=== PATIENT | female | born 1945 | race Caucasian/White ===

== ENCOUNTER 2016-07-09 12:07 | Emergency (ER) | payer OTHER ==
[2016-07-09 12:13] VITALS: BP 115/62; PULSE 78; RESP 18; TEMP 98; O2SAT 97
[2016-07-09] MEDS ORDERED: TDAP ADULT 0.5 ML INJ (BOOSTRIX) IM ONE (12:13)
[2016-07-09] MEDS ORDERED: TETANUS, DIPHTHERIA TOX (7YR+) 0.5 ML INJ IM ONE (12:25)
[2016-07-09] MEDS ORDERED: LETS SOLN TOPICAL 1 EA SYR TP ONE (13:24)
--- NOTE | 2016-07-09 15:10 | UCPHY ---
H & P Time Seen by Provider: 07/09/16 13:09 Patient Type: Established HPI/ROS: This patient sustained a laceration from her cat scratching her forearm shortly prior to arrival. The cat took offense to the new puppy in the home and was trying to tack the puppy. The patient rushed to the canine to fence only to suffer a laceration to her forearm with mild to moderate pain from the laceration and mild bleeding that occurred shortly prior to arrival. The bleeding was controlled with direct pressure. ROS: No numbness. No difficulty moving the affected hand. No cat bites. 5 point ROS is otherwise negative. Past Medical/Surgical History: Healthy Smoking Status: Never smoked Physical Exam: Physical Exam Vital signs are normal. General: No acute distress Lungs: No respiratory distress. Cardiac: Brisk capillary refill is intact throughout. Pulses are 2+ and symmetric in the affected extremity. Skin: No rash or pallor. Patient has a 3 cm full-thickness laceration to the right forearm with minimal bleeding. No foreign bodies and direct examination the injuries on the dorsum. Neuro: Alert and oriented x3 with no sensorimotor deficits. Constitutional: Initial Vital Signs Temperature (C) 36.6 C 07/09/16 12:12 Heart Rate 78 07/09/16 12:12 Respiratory Rate 18 07/09/16 12:12 Blood Pressure 115/62 07/09/16 12:12 O2 Sat (%) 97 07/09/16 12:12 O2 Delivery Mode Room Air Allergies/Adverse Reactions: No Known Allergies Allergy (Verified 06/25/14 17:28) Home Medications: Medication Instructions Recorded No Medications [No Meds] 04/21/13 Amoxicillin/Clavulanate Pot 875 mg PO BID #14 tab 07/09/16 [Augmentin 875 MG TAB (*)] MDM/Departure - MDM Procedures: The wound is 3 cm. The wound was copiously irrigated with saline. The wound was explored for foreign bodies and none were found. The wound was prepped and draped in the normal sterile fashion. The wound was anesthetized using let solution followed by 1% plain lidocaine, 27 gauge needle, 3 mL with good effect. The edges were reapproximated using 5 0 Ethilon-6 running sutures with good hemostasis and cosmesis. The patient tolerated the procedure well. There were no complications Medications Given: Discontinued Medications Diphtheria/Tetanus/Acell Pertussis (Boostrix) 0.5 ml IM .ONCE ONE Stop: 07/09/16 12:14 Last Admin: 07/09/16 12:30 Dose: Not Given Tetanus/Diphtheria Toxoids Adsorbed (Tetanus-Diphtheria Tenivac) 0.5 ml IM .ONCE ONE Stop: 07/09/16 12:26 Last Admin: 07/09/16 12:29 Dose: 0.5 ml Tetracaine/Epinephrine/Lidocaine (Lets Soln Topical) 1 ea TP EDNOW ONE Stop: 07/09/16 13:25 Last Admin: 07/09/16 13:30 Dose: 1 ea ED Course/Re-evaluation: I provided the patient with an Augmentin script to start taking if she develops redness or discharge - Depart Disposition: Home, Routine, Self-Care Clinical Impression: Forearm laceration Qualifiers: Encounter type: initial encounter Laterality: right Qualifier Code: (S51.811A) Laceration without foreign body of right forearm, initial encounter Instructions: Care For Your Stitches (ED) Additional Instructions: Diagnosis: Forearm laceration Plan: Keep the wound clean and dry for the next 2 days. Then Clean wound with warm soapy water daily Start the Augmentin antibiotic the developing redness or discharge Return for suture removal in 10-12 days Return sooner if he develops worsening symptoms prior to then. Prescriptions: Amoxicillin/Clavulanate Pot [Augmentin 875 MG TAB (*)] 875 mg PO BID #14 tab Referrals: [place] STATE,. [Primary Care Provider] - As per Instructions - PQRS PQRS Measurement: 134: Depression screening and followup, PRIME MD-PHQ2 (12 years and older) Over the last 2 weeks, how often have you been bothered by any of the following problems? 1. Feeling down, depressed, or hopeless? 2. Little interest or pleasure in doing things? Patient answered no to both 1 and 2 130: Documentation of medications. Reviewed all patient medications, doses, route and frequency. 226: Do you smoke? [No.] 47: 65 and older: Advanced care planning. Patient designates surrogate decision maker as daughter, Bonnie 51: 18 years old and older with diagnosis of COPD, spirometry performance. NA 52: 18 years old and older with COPD and symptoms of COPD or FEV1<60% predicted prescribed a B Agonist. NA
== END 2016-07-09 15:13 | disposition home or self-care (01) ==
LOC: CED 12:07
PROC: 0HQDXZZ Repair Right Lower Arm Skin, External Approach (ICD-10-PCS; principal; 2016-07-09)
DX: S51.811A Laceration without foreign body of right forearm, initial encounter (principal); W55.03XA Scratched by cat, initial encounter
CPT/HCPCS: 12002; 90471; 90714; G0463; 99214-PO

== ENCOUNTER 2017-02-25 15:04 | Emergency (ER) | payer OTHER ==
[2017-02-25] MEDS ORDERED: HYDROCODONE/APAP 5/325 TAB PO ONE (15:09)
--- NOTE | 2017-02-25 15:19 | EDPHY ---
H & P Stated Complaint: left wrist injury fall from standing Time Seen by Provider: 02/25/17 15:16 HPI/ROS: CHIEF COMPLAINT: Left wrist pain HISTORY OF PRESENT ILLNESS: The patient is a 71-year-old female who comes to the emergency department complaining of left wrist pain. She fell on an outstretched hand. She tripped over her dog. She denies other injuries. REVIEW OF SYSTEMS: Constitutional: denies: chills, fever, recent illness, recent injury EENTM: denies: blurred vision, double vision, nose congestion Respiratory: denies: cough, shortness of breath Cardiac: denies: chest pain, irregular heart rate, lightheadedness, palpitations Gastrointestinal/Abdominal: denies: abdominal pain, diarrhea, nausea, vomiting, blood streaked stools Genitourinary: denies: dysuria, frequency, hematuria, pain Musculoskeletal: See HPI Skin: denies: lesions, rash, jaundice, bruising Neurological: denies: headache, numbness, paresthesia, tingling, dizziness, weakness Hematologic/Lymphatic: denies: blood clots, easy bleeding, easy bruising Immunologic/allergic: denies: HIV/AIDS, transplant EXAM: GENERAL: Well-appearing, well-nourished and in no acute distress. HEAD: Atraumatic, normocephalic. EYES: Pupils equal round and reactive to light, extraocular movements intact, sclera anicteric, conjunctiva are normal. ENT: TMs normal, nares patent, oropharynx clear without exudates. Moist mucous membranes. NECK: Normal range of motion, supple without lymphadenopathy or JVD. LUNGS: Breath sounds clear to auscultation bilaterally and equal. No wheezes rales or rhonchi. HEART: Regular rate and rhythm without murmurs, rubs or gallops. ABDOMEN: Soft, nontender, normoactive bowel sounds. No guarding, no rebound. No masses appreciated. BACK: No CVA tenderness, no spinal tenderness, step-offs or deformities EXTREMITIES: Left wrist deformity, normal movement distally. Pulses intact. NEUROLOGICAL: Cranial nerves II through XII grossly intact. Normal speech, normal gait. 5/5 strength, normal movement in all extremities, normal sensation PSYCH: Normal mood, normal affect. SKIN: Warm, dry, normal turgor, no visible rashes or lesions. Source: Patient Exam Limitations: No limitations - Personal History Current Tetanus/Diphtheria Vaccine: Yes Current Tetanus Diphtheria and Acellular Pertussis (TDAP): Yes Tetanus Vaccine Date: < 10 years - Medical/Surgical History Hx Asthma: No Hx Chronic Respiratory Disease: No Hx Diabetes: No Hx Cardiac Disease: No Hx Renal Disease: No Hx Cirrhosis: No Hx Alcoholism: No Hx HIV/AIDS: No Hx Splenectomy or Spleen Trauma: No Other PMH: denies - Social History Smoking Status: Never smoked Alcohol Use: Sober Drug Use: None Constitutional: Initial Vital Signs Temperature (C) 36.6 C 02/25/17 15:10 Heart Rate 67 02/25/17 15:10 Respiratory Rate 20 02/25/17 15:10 Blood Pressure 138/71 H 02/25/17 15:10 O2 Sat (%) 99 02/25/17 15:10 O2 Delivery Mode Room Air Allergies/Adverse Reactions: No Known Allergies Allergy (Verified 02/25/17 15:09) Home Medications: Medication Instructions Recorded No Medications [No Meds] 04/21/13 Hydrocodone/APAP 5/325 [[place] 1 - 2 tab PO Q4H PRN #10 tab 02/25/17 5/325 (RX)] Medical Decision Making - Diagnostics Imaging Results: Imaging Impressions Wrist X-Ray 02/25/17 15:07 Impression: Acute minimally angulated distal radius fracture. Wrist X-Ray 02/25/17 16:07 Impression: Successful anatomical reduction of the distal radial fracture. Imaging: Discussed imaging studies w/ billing administrator Radiologist Procedures: Fracture reduction: The patient was anesthetized with the hematoma block the 10 cc of 0.5% bupivacaine. She was then taken to x-ray and her fracture was reduced with traction and direct pressure. She tolerated the procedure well. Pulses remained intact. Procedure: Splint placement. A sugar-tong splint was applied. After application of the splint I returned and re-examined the patient. The splint was adequately immobilizing the joint and distal to the splint the patient's circulation and sensation was intact. ED Course/Re-evaluation: Patient tolerated the procedure well. Post reduction x-rays show appropriate alignment. We will have her follow up with Orthopedics. Splint is in place. Differential Diagnosis: Partial list of the Differential diagnosis considered include but were not limited to; Colles fracture, dislocation, open fracture and although unlikely based on the history and physical exam, I also considered tendon injury, vascular injury, infection, foreign body. I discussed these differential diagnoses and the plan with the patient as well as the usual and expected course. The patient understands that the diagnosis is provisional and that in medicine we are not always correct and that further workup is often warranted. Usual and customary warnings were given. All of the patient's questions were answered. The patient was instructed to return to the emergency department should the symptoms at all worsen or return, otherwise to followup with the physician as we discussed. - Data Points Medications Given: Discontinued Medications Hydrocodone Bitart/Acetaminophen ([place] 5/325) 1 tab PO EDNOW ONE Stop: 02/25/17 15:10 Last Admin: 02/25/17 15:16 Dose: 1 tab Fentanyl (Sublimaze) 200 mcg NASAL ONCE ONE Stop: 02/25/17 15:21 Last Admin: 02/25/17 15:29 Dose: Not Given Fentanyl (Sublimaze) 100 mcg NASAL ONCE ONE Stop: 02/25/17 15:29 Last Admin: 02/25/17 15:30 Dose: 100 mcg Departure - Departure Disposition: Home, Routine, Self-Care Clinical Impression: Colles' fracture of left radius Qualifiers: Encounter type: initial encounter Fracture type: closed Qualified Code(s): S52.532A - Colles' fracture of left radius, initial encounter for closed fracture Condition: Fair Instructions: Wrist Fracture in Adults (ED) Additional Instructions: Wear the splint for 1 week and then follow up with Orthopedics. Referrals: NONE *PRIMARY CARE P,. [Primary Care Provider] - As per Instructions Phil Banks MD [Medical Doctor] - As per Instructions Prescriptions: Hydrocodone/APAP 5/325 [[place] 5/325 (RX)] 1 - 2 tab PO Q4H PRN #10 tab PRN Reason: Pain, Moderate
[2017-02-25] MEDS ORDERED: fentaNYL 100 MCG/2 ML INJ ONE (15:22)
[2017-02-25 16:34] VITALS: BP 128/67; PULSE 74; RESP 18; TEMP 98.1; O2SAT 97
== END 2017-02-25 16:34 | disposition home or self-care (01) ==
LOC: CED 15:04
PROC: 0PSHXZZ Reposition Right Radius, External Approach (ICD-10-PCS; principal; 2017-02-25)
DX: S52.532A Colles' fracture of left radius, initial encounter for closed fracture (principal); W01.0XXA Fall on same level from slipping, tripping and stumbling without subsequent striking against object, initial encounter; Y92.019 Unspecified place in single-family (private) house as the place of occurrence of the external cause
CPT/HCPCS: 25605; 73100; 73110; 99283; J3010

== ENCOUNTER 2017-02-27 10:42 | Emergency (ER) | payer OTHER ==
[2017-02-27 10:58] VITALS: PULSE 61; RESP 18; O2SAT 95
--- NOTE | 2017-02-27 11:07 | EDPHY ---
H & P Time Seen by Provider: 02/27/17 11:03 HPI/ROS: CHIEF COMPLAINT: Right arm pain HISTORY OF PRESENT ILLNESS: The patient is a 71-year-old female who presents emergency department with increased arm pain and hand swelling over the past 2 days. She recently fell and broke her distal radius. This required reduction in the emergency department. She was splinted. She noticed discoloration on her hand and increased swelling. She has mild increased discomfort. No numbness or tingling. She denies other injury. The patient has an appointment with orthopedic surgeon this week. REVIEW OF SYSTEMS: My complete review of systems is negative except as mentioned in the HPI. Past Medical/Surgical History: Osteopenia Smoking Status: Never smoked Physical Exam: Vitals noted General Appearance: Alert and no distress. Head: Pupils equal. Normal. Respiratory: No respiratory distress. Cardiac: regular rate and rhythm. Extremities: the Tony wrap was removed by the nursing staff. On my evaluation the Ortho Glass portion of splint was in place. There is mild swelling at her hand. There is bruising on the dorsal aspect of her hand. She has positive and brisk capillary refill. Strong radial and ulnar pulse. Normal brachial pulse. Neurovascular intact distally. Skin: No rashes or lesions. Neuro: Alert. Normal mood and affect. Constitutional: Initial Vital Signs Heart Rate 61 02/27/17 10:53 Respiratory Rate 18 02/27/17 10:53 Blood Pressure 154/87 H 02/27/17 10:53 O2 Sat (%) 95 02/27/17 10:53 O2 Delivery Mode Room Air Allergies/Adverse Reactions: No Known Allergies Allergy (Verified 02/27/17 10:58) Home Medications: Medication Instructions Recorded No Medications [No Meds] 04/21/13 Hydrocodone/APAP 5/325 [[place] 1 - 2 tab PO Q4H PRN #10 tab 02/25/17 5/325 (RX)] Medical Decision Making ED Course/Re-evaluation: In the emergency department I discussed the need for close follow-up with the patient. The patient had her Ortho Glass splint rewrapped. She was neurovascularly intact distally. I feel the swelling of her hand caused the splint to be overly tight causing her symptoms. I doubt compartment syndrome. Patient appeared well on my exam. Differential Diagnosis: My differential includes but is not limited to compartment syndrome, hematoma, fracture, dislocation, neurovascular injury Departure - Departure Disposition: Home, Routine, Self-Care Clinical Impression: Right arm pain Radius fracture Qualifiers: Encounter type: subsequent encounter Radius location: distal physis (incl. Salter[place]Chowdhury) Fracture alignment: displaced Laterality: right Fracture healing : with routine healing Qualified Code(s): S59.201D - Unspecified physeal fracture of lower end of radius, right arm, subsequent encounter for fracture with routine healing Condition: Good Instructions: Arm Fracture in Adults (ED) Additional Instructions: Return with increasing pain, numbness, weakness or any other concerns. Keep your appointment with the orthopedic surgeon this week. Referrals: Phil Banks MD [Medical Doctor] - 2-3 days without fail
[2017-02-27 11:44] VITALS: BP 143/78
== END 2017-02-27 11:28 | disposition home or self-care (01) ==
LOC: CED 10:42
DX: S59.201D Unspecified physeal fracture of lower end of radius, right arm, subsequent encounter for fracture with routine healing (principal); W18.39XD Other fall on same level, subsequent encounter

== ENCOUNTER 2017-11-01 17:55 | Observation (INO) | payer OTHER ==
[2017-11-01] MEDS ORDERED: IOPAMIDOL (ISOVUE 370) 100 ML BTL IV ONE (18:08)
--- NOTE | 2017-11-01 18:15 | EDPHY ---
H & P Stated Complaint: ACUTE MENTAL STATUS CHANGE STARTING AT 1400 Time Seen by Provider: 11/01/17 18:01 HPI/ROS: This patient is accompanied by her daughter with whom she lives with complaint of new onset of short-term memory deficit starting at 2:00 p.m. This afternoon. Patient and her daughter explain that she was with with a normal mental status document details of her vehicle in problems with its mechanical function. Then at 2:00 p.m. And a conversation with the senior mechanical design engineer she could not remember any part of the conversation. She was upset by this and had the senior mechanical design engineer call back with her daughter present on speaker phone to the details and then she did remember that conversation. Other than her short-term memory problems she denies any other new neurological problems. She felt well prior to the onset of her memory difficulties today. Her daughter brought her in by private vehicle for further evaluation of the symptoms. ROS: Constitutional: No fevers or chills. No fatigue. HEENT: No recent URI symptoms, sinus pain, ear pain or other complaints Neuro: No headache. No focal neuro symptoms. No visual changes. No recent head injuries. Musculoskeletal: No neck pain or stiffness. She does have bilateral leg pain for quite some time which that is mild in intensity without exacerbating factors and has not recently changed. Pulmonary: No coughing. She does have some dyspnea on exertion with a out dyspnea at baseline. Cardiovascular: No chest pain. No heart palpitations. No lower extremity swelling. GI: No nausea. No abdominal pain. She had no difficulty eating pasta for lunch today. : No dysuria or other complaints. No flank pain. Integumentary: No skin rash. Complete review of symptoms is otherwise negative. Source: Patient Exam Limitations: No limitations - Personal History Tetanus Vaccine Date: < 10 years - Medical/Surgical History PMH: Otherwise healthy. She had a normal cardiac stress test recently that was performed due to some new dyspnea on exertion per her daughter. Hx Asthma: No Hx Chronic Respiratory Disease: No Hx Diabetes: No Hx Cardiac Disease: No Hx Renal Disease: No Hx Cirrhosis: No Hx Alcoholism: No Hx HIV/AIDS: No Hx Splenectomy or Spleen Trauma: No Other PMH: osteopenia - Family History Significant Family History: No pertinent family hx - Social History Smoking Status: Never smoked Alcohol Use: None Drug Use: None Additional Social History: She lives with her daughter who brought her here for evaluation. - Physical Exam Exam: Physical exam: Vital signs are normal General: Patient is in no acute distress. HEENT: Is no external evidence of trauma on exam. Nose atraumatic. Ears: Clear bilaterally with no hemotympanum. Oropharynx: No dental trauma or malocclusion. No intraoral lacerations. Eyes: Pupils are equal and reactive to light. Extraocular motions are intact. Optic fundi: Clear with no papilledema or hemorrhage. Neck: Trachea is midline with no stridor. The patient has no midline neck tenderness and retains a full range of motion without increase in pain. Lungs: Clear to auscultation bilaterally Cardiac: Regular rate and rhythm no murmur gallop or rub. Chest: Nontender. Abdomen: Soft nontender no organomegaly Back: Nontender Extremities: Atraumatic Neuro: GCS of 15. Cranial nerves II through XII intact. Cerebellar exam is normal as judged by symmetric rapid hand movements bilaterally. No pronator drift. No sensory or motor deficits are appreciated. NIH stroke scale = 0 Initial differential diagnosis: Transient global amnesia, ischemic stroke, hemorrhagic stroke, metabolic disarray, UTI Constitutional: Initial Vital Signs Temperature (C) 36.6 C 11/01/17 18:04 Heart Rate 68 11/01/17 18:04 Respiratory Rate 18 11/01/17 18:04 Blood Pressure 168/94 H 11/01/17 18:04 O2 Sat (%) 96 11/01/17 18:04 O2 Delivery Mode Room Air Allergies/Adverse Reactions: No Known Allergies Allergy (Verified 11/01/17 18:03) Home Medications: Medication Instructions Recorded Citalopram 11/01/17 Ritalin 10mg (*) 11/01/17 Medical Decision Making - Diagnostics EKG Interpretation: 12 lead EKG performed shortly after arrival indication neuro symptoms rule out cardiac anomalies Sinus rhythm at rate of 64 Intervals: Normal throughout [place]: LAD Overall assessment: normal sinus rhythm with left axis deviation, please refer to complete read and the trace master child care assistant. Imaging Results: Imaging Impressions Head CT 11/01/17 18:08 Impression: There is no acute intracranial abnormality identified on this unenhanced CT evaluation. If there is further clinical concern regarding the patient's symptoms, MR imaging is suggested, if not otherwise contraindicated. Findings were discussed with DANIEL REYNOSO MD at 18:23, on 11/01/2017. Head CTA 11/01/17 18:27 Impression: Negative CT angiogram of the brain. 2. CT Angiography of the Neck (With Contrast) Clinical Indications: Sudden memory loss, acute neurological symptoms Technique: During IV administration of 85 mL of Isovue-370 intravenously, helical multidetector data acquisition was obtained from the upper thorax cephalad through the skull base. The thinly collimated data were manipulated in multiple projections on the 3D computer workstation by the radiologist. Dose reduction techniques were utilized. Findings: Carotid bifurcations are widely patent. Both vertebral arteries are tortuous proximally but widely patent. No evidence of occlusion, hemodynamically significant stenosis, or ulceration. Impression: Normal. Final concordant results discussed with Dr. Daniel Reynoso at 7:20 PM. Note: All stenoses are calculated using NASCET Criteria. General information for patients regarding this examination can be found at [employer]. If you have questions or comments about this report, please contact me at [phone]([facility]) or [phone] (cell). Neck CTA 11/01/17 18:31 Impression: Negative CT angiogram of the brain. 2. CT Angiography of the Neck (With Contrast) Clinical Indications: Sudden memory loss, acute neurological symptoms Technique: During IV administration of 85 mL of Isovue-370 intravenously, helical multidetector data acquisition was obtained from the upper thorax cephalad through the skull base. The thinly collimated data were manipulated in multiple projections on the 3D computer workstation by the radiologist. Dose reduction techniques were utilized. Findings: Carotid bifurcations are widely patent. Both vertebral arteries are tortuous proximally but widely patent. No evidence of occlusion, hemodynamically significant stenosis, or ulceration. Impression: Normal. Final concordant results discussed with Dr. Daniel Reynoso at 7:20 PM. Note: All stenoses are calculated using NASCET Criteria. General information for patients regarding this examination can be found at [employer]. If you have questions or comments about this report, please contact me at (hospital) or [phone] (cell). Imaging: Discussed imaging studies w/ director call center sales Radiologist ED Course/Re-evaluation: Course: IV is established, patient was initially placed in a stroke alert then downgraded after further review of her symptoms, NIH stroke scale [address] CBC is normal, metabolic panel is normal, urinalysis with 3-5 white cells, 1+ bacteria, trace leuk esterase. A culture is sent. Without any urinary symptoms and borderline findings I do not think she has a UTI at this time I reviewed CT brain with Dr. Medina shortly after patient's arrival-normal. I spoke with [place] neurologist Dr. Casey who recommended CT angio brain as well and observation admission with anticipated diagnosis of transient global amnesia. He advised against aspirin or any other medical intervention at this time other than admission to a neuro bed I spoke with Dr. Sánchez Ruggiero, hospitalist at [facility] accepts the patient for transfer. CT angio head is also read as normal by Dr. Fairchild. I discussed these results with him over the phone Discussion: Patient with short-term memory problems acute in onset-likely transient global amnesia without any red flag findings in terms of neuro imaging. - Data Points Laboratory Results: Laboratory Results 11/01/17 18:25 11/01/17 18:25 11/01/17 11/01/17 11/01/17 18:26 18:25 18:25 WBC RBC Hgb POC Hgb 15.3 gm/dL gm/dL (12.6-16.3) Hct POC Hct 45 % % (38-47) MCV MCH MCHC RDW Plt Count MPV Neut % (Auto) Lymph % (Auto) [place] % (Auto) Eos % (Auto) Baso % (Auto) Nucleat RBC Rel Count Absolute Neuts (auto) Absolute Lymphs (auto) Absolute Monos (auto) Absolute Eos (auto) Absolute Basos (auto) Absolute Nucleated RBC Immature Gran % Immature Gran # POC Sodium 143 mEq/L mEq/L (135-145) Sodium 141 mEq/L mEq/L (135-145) POC Potassium 3.6 mEq/L mEq/L (3.3-5.0) Potassium 3.7 mEq/L mEq/L (3.3-5.0) POC Chloride 106 mEq/L mEq/L (97-110) Chloride 106 mEq/L mEq/L (97-110) Carbon Dioxide 25 mEq/l mEq/l (22-31) Anion Gap 10 mEq/L mEq/L (8-16) POC BUN 16 mg/dL mg/dL (7-23) BUN 15 mg/dL mg/dL (7-23) Creatinine 0.7 mg/dL mg/dL (0.6-1.0) POC Creatinine 0.7 mg/dL mg/dL (0.6-1.0) Estimated GFR > 60 Glucose 82 mg/dL mg/dL (70-100) POC Glucose 86 mg/dL mg/dL (70-100) Calcium 9.5 mg/dL mg/dL (8.5-10.4) Total Bilirubin 0.5 mg/dL mg/dL (0.1-1.4) AST 24 IU/L IU/L (14-46) ALT 24 IU/L IU/L (9-52) Alkaline Phosphatase 81 IU/L IU/L (38-126) Total Protein 7.4 g/dL g/dL (6.3-8.2) Albumin 4.0 g/dL g/dL (3.5-5.0) TSH 2.730 uIU/mL uIU/mL (0.465-4.680) Urine Color YELLOW Urine Appearance CLEAR Urine pH 7.0 (5.0-7.5) Ur Specific [place] <= 1.005 (1.002-1.030) Urine Protein NEGATIVE (NEGATIVE) Urine Ketones NEGATIVE (NEGATIVE) Urine Blood TRACE H (NEGATIVE) Urine Nitrate NEGATIVE (NEGATIVE) Urine Bilirubin NEGATIVE (NEGATIVE) Urine Urobilinogen 0.2 EU EU (0.2-1.0) Ur Leukocyte Esterase TRACE H (NEGATIVE) Urine RBC 0-1 /hpf /hpf (0-3) Urine WBC 3-5 /hpf H /hpf (0-3) Ur Epithelial Cells TRACE /lpf /lpf (NONE-1+) Urine Bacteria 1+ /hpf H /hpf (NONE SEEN) Urine Glucose NEGATIVE (NEGATIVE) 11/01/17 11/01/17 18:25 18:09 WBC 6.21 10^3/uL 10^3/uL (3.80-9.50) RBC 4.70 10^6/uL 10^6/uL (4.18-5.33) Hgb 14.1 g/dL g/dL (12.6-16.3) POC Hgb Hct 42.4 % % (38.0-47.0) POC Hct MCV 90.2 fL fL (81.5-99.8) MCH 30.0 pg pg (27.9-34.1) MCHC 33.3 g/dL g/dL (32.4-36.7) RDW 13.2 % % (11.5-15.2) Plt Count 311 10^3/uL 10^3/uL (150-400) MPV 9.2 fL fL (8.7-11.7) Neut % (Auto) 54.6 % % (39.3-74.2) Lymph % (Auto) 34.8 % % (15.0-45.0) [place] % (Auto) 7.2 % % (4.5-13.0) Eos % (Auto) 2.6 % % (0.6-7.6) Baso % (Auto) 0.5 % % (0.3-1.7) Nucleat RBC Rel Count 0.0 % % (0.0-0.2) Absolute Neuts (auto) 3.39 10^3/uL 10^3/uL (1.70-6.50) Absolute Lymphs (auto) 2.16 10^3/uL 10^3/uL (1.00-3.00) Absolute Monos (auto) 0.45 10^3/uL 10^3/uL (0.30-0.80) Absolute Eos (auto) 0.16 10^3/uL 10^3/uL (0.03-0.40) Absolute Basos (auto) 0.03 10^3/uL 10^3/uL (0.02-0.10) Absolute Nucleated RBC 0.00 10^3/uL 10^3/uL (0-0.01) Immature Gran % 0.3 % % (0.0-1.1) Immature Gran # 0.02 10^3/uL 10^3/uL (0.00-0.10) POC Sodium Sodium POC Potassium Potassium POC Chloride Chloride Carbon Dioxide Anion Gap POC BUN BUN Creatinine POC Creatinine Estimated GFR Glucose POC Glucose 71 mg/dL mg/dL (70-100) Calcium Total Bilirubin AST ALT Alkaline Phosphatase Total Protein Albumin TSH Urine Color Urine Appearance Urine pH Ur Specific [place] Urine Protein Urine Ketones Urine Blood Urine Nitrate Urine Bilirubin Urine Urobilinogen Ur Leukocyte Esterase Urine RBC Urine WBC Ur Epithelial Cells Urine Bacteria Urine Glucose Point of Care Test Results: 11/01/17 11/01/17 18:09 18:26 POC Sodium 143 POC Potassium 3.6 POC Chloride 106 POC BUN 16 POC Creatinine 0.7 POC Glucose 71 86 Departure - Departure Disposition: [facility] Inpatient Acute Clinical Impression: Transient global amnesia Condition: Good
[2017-11-01 18:36] LABS: PLATELET COUNT 311 10^3/uL (150-400)
--- NOTE | 2017-11-01 19:05 | CPEKG ---
Heart Rate: 64 RR Interval: 938 P-R Interval: 164 QRSD Interval: 104 QT Interval: 428 QTC Interval: 442 P [place]: 68 QRS [place]: -36 T Wave [place]: 39 EKG Severity - OTHERWISE NORMAL ECG - EKG Impression: SINUS RHYTHM EKG Impression: LEFT AXIS DEVIATION Electronically Signed By: Mack Moss 01-Nov-2017 21:22:39
[2017-11-01] MEDS ORDERED: ONDANSETRON 4 MG/2 ML VIAL IVP PRN (22:13)
[2017-11-01] MEDS ORDERED: ACETAMINOPHEN 325 MG TAB PO PRN (22:13)
[2017-11-01] MEDS ORDERED: D50W 25 GM/50 ML SYR IVP PRN (23:16)
--- NOTE | 2017-11-01 23:36 | PDGENHP ---
History and Physical - Chief Complaint memory loss - History of Present Illness Source - patient provides majority of pmhx. daughter at bedside and supplements details of today. EMR reviewed and case discussed with accepting hospitalist provider. HPI - this is a very pleasant 71-year-old female with past medical history significant for depression and anxiety and otherwise relatively healthy who presents emergency department today on for complaints of memory loss since approximately 2:00 p.m.. Patient reports she was in her usual state of health but cannot really recall exactly what happened in the afternoon. She does remember from what her daughter has had to react spleen to her that she was talking to a mechanical system technician on the phone but was unsure of what he had said. She appeared confused to the daughter who on was visiting in the afternoon. She had no reported focal deficits slurred speech or changes in vision. Patient still was not able to recall the conversation of details of discussion with the mechanical system technician after patient called back with the daughter of listening on the speaker phone. Patient currently denies any headache, changes in vision, nausea vomiting, lightheadedness, chest pain or palpitations, shortness of breath or any other symptoms. She simply cannot recall. Patient without any previous episodes similarly. Daughter reports that patient did not have any evidence of seizure type of activity or staring. No observe tonic clonic activity and no syncope. Patient denies any recent use of any [id number] medications. He has continued to take her citalopram and her liver Ritalin as prescribed. She denies missing any doses. Daughter does report that she has noticed some minimal on memory decline over the last year. Patient will forget minor details such as where she left her phone or her keys. She has never had any significant memory deficits such as today however. History Information - Allergies/Home Medication List Allergies/Adverse Reactions: No Known Allergies Allergy (Verified 11/01/17 22:37) Home Medications: Citalopram 1 tab PO DAILY@17 11/01/17 [Last Taken 10/31/17] Herbals/Supplements -Info Only 2 ea PO DAILY 11/01/17 [Last Taken Unknown] Multivitamins [Multivitamin (*)] 1 each PO DAILY 11/01/17 [Last Taken Unknown] [place]-3/Dha/Epa/Fish Oil [Fish Oil 1,000 mg Softgel] 2 each PO DAILY 11/01/17 [ Last Taken Unknown] methYLPHENIDATE HCL [Ritalin 10mg (*)] 10 mg PO BID@09,15 11/01/17 [Last Taken Unknown] I have personally reviewed and updated: family history, medical history, social history, surgical history - Past Medical History Additional medical history: Depression, osteoporosis, HLD - Surgical History Additional surgical history: Left wrist surgery for fracture repair - Family History Additional family history: No family history of CVA, CAD, seizures or dementia. - Social History Smoking Status: Never smoked Alcohol Use: None Drug Use: None Additional social history: Patient lives with her daughter. She is generally quite active and healthy. Cor status-full Review of Systems Review of Systems: ROS: 10pt was reviewed & negative except for what was stated in HPI & below Physical Exam Physical Exam: Selected Entries 11/01/17 18:04 Blood Pressure Automatic Method Heart Rate 68 Respiratory 18 Rate O2 Sat (%) 96 Temperature (C) 36.6 C Blood Pressure 168/94 H Mean Arterial 118 H Pressure (MAP) O2 Delivery Room Air Mode Temperature Oral Source Temp Pulse Resp BP Pulse Ox 36.6 C 76 17 115/68 93 11/01/17 22:59 11/01/17 22:59 11/01/17 22:59 11/01/17 22:59 11/01/17 22:59 Constitutional: no apparent distress, appears nourished, other (NAD. Pleasant adult female is resting quietly on bed. Daughter at bedside.), No chronically ill appearing Eyes: PERRL, anicteric sclera, EOMI, No scleral injection Ears, Nose, Mouth, Throat: moist mucous membranes, hearing normal, no oral mucosal ulcers, other (No nasal discharge), No poor dentition, No dry mucous membranes Cardiovascular: regular rate and rhythym, no murmur, rub, or gallop, pulses symmetric bilaterally, No systolic murmur, No edema Peripheral Pulses: 2+: dorsalis-pedis (R), dorsalis-pedis (L) Respiratory: no respiratory distress, no rales or rhonchi, clear to auscultation , No reduced air movement, No expiratory wheeze, No respiratory distress Gastrointestinal: normoactive bowel sounds, soft, non-tender abdomen, no palpable masses, No distension Genitourinary: no bladder fullness, no bladder tenderness, No alejandra in urethra Skin: warm, normal color, no rashes or abrasions Musculoskeletal: full muscle strength, no muscle tenderness, other (Patient sits up independently.), No generalized weakness Neurologic: AAOx3, sensation intact bilaterally, CN II-XII Intact, other ( Finger to nose testing intact), No weakness, No pronator drift, No facial droop Psychiatric: interacting appropriately, anxious (Patient minimally act anxious but pleasant and cooperative in good spirits.), No agitated Lab Data & Imaging Review 11/01/17 18:25 11/01/17 18: WBC 6.21 10^3/uL (3.80-9.50) 11/01/17 18: RBC 4.70 10^6/uL (4.18-5.33) 11/01/17 18: Hgb 14.1 g/dL (12.6-16.3) 11/01/17 18: POC Hgb 15.3 gm/dL (12.6-16.3) 11/01/17 18: Hct 42.4 % (38.0-47.0) 11/01/17 18: POC Hct 45 % (38-47) 11/01/17 18: MCV 90.2 fL (81.5-99.8) 11/01/17 18: MCH 30.0 pg (27.9-34.1) 11/01/17 18: MCHC 33.3 g/dL (32.4-36.7) 11/01/17 18: RDW 13.2 % (11.5-15.2) 11/01/17 18: Plt Count 311 10^3/uL (150-400) 11/01/17 18: MPV 9.2 fL (8.7-11.7) 11/01/17 18: Neut % (Auto) 54.6 % (39.3-74.2) 11/01/17 18: Lymph % (Auto) 34.8 % (15.0-45.0) 11/01/17 18: [place] % (Auto) 7.2 % (4.5-13.0) 11/01/17 18: Eos % (Auto) 2.6 % (0.6-7.6) 11/01/17 18: Baso % (Auto) 0.5 % (0.3-1.7) 11/01/17 18:25 Nucleat RBC Rel Count 0.0 % (0.0-0.2) 11/01/17 18:25 Absolute Neuts (auto) 3.39 10^3/uL (1.70-6.50) 11/01/17 18:25 Absolute Lymphs (auto) 2.16 10^3/uL (1.00-3.00) 11/01/17 18:25 Absolute Monos (auto) 0.45 10^3/uL (0.30-0.80) 11/01/17 18:25 Absolute Eos (auto) 0.16 10^3/uL (0.03-0.40) 11/01/17 18: Absolute Basos (auto) 0.03 10^3/uL (0.02-0.10) 11/01/17 18: Absolute Nucleated RBC 0.00 10^3/uL (0-0.01) 11/01/17 18: Immature Gran % 0.3 % (0.0-1.1) 11/01/17 18: Immature Gran # 0.02 10^3/uL (0.00-0.10) 11/01/17 18:25 POC Sodium 143 mEq/L (135-145) 11/01/17 18:26 Sodium 141 mEq/L (135-145) 11/01/17 18:25 POC Potassium 3.6 mEq/L (3.3-5.0) 11/01/17 18:26 Potassium 3.7 mEq/L (3.3-5.0) 11/01/17 18:25 POC Chloride 106 mEq/L (97-110) 11/01/17 18:26 Chloride 106 mEq/L (97-110) 11/01/17 18:25 Carbon Dioxide 25 mEq/l (22-31) 11/01/17 18:25 Anion Gap 10 mEq/L (8-16) 11/01/17 18:25 POC BUN 16 mg/dL (7-23) 11/01/17 18:26 BUN 15 mg/dL (7-23) 11/01/17 18:25 Creatinine 0.7 mg/dL (0.6-1.0) 11/01/17 18:25 POC Creatinine 0.7 mg/dL (0.6-1.0) 11/01/17 18:26 Estimated GFR > 60 11/01/17 18:25 Glucose 82 mg/dL (70-100) 11/01/17 18:25 POC Glucose 86 mg/dL (70-100) 11/01/17 18:26 Calcium 9.5 mg/dL (8.5-10.4) 11/01/17 18:25 Total Bilirubin 0.5 mg/dL (0.1-1.4) 11/01/17 18:25 AST 24 IU/L (14-46) 11/01/17 18:25 ALT 24 IU/L (9-52) 11/01/17 18:25 Alkaline Phosphatase 81 IU/L (38-126) 11/01/17 18:25 Total Protein 7.4 g/dL (6.3-8.2) 11/01/17 18:25 Albumin 4.0 g/dL (3.5-5.0) 11/01/17 18:25 TSH 2.730 uIU/mL (0.465-4.680) 11/01/17 18:25 Urine Color YELLOW 11/01/17 18:25 Urine Appearance CLEAR 11/01/17 18:25 Urine pH 7.0 (5.0-7.5) 11/01/17 18:25 Ur Specific [place] <= 1.005 (1.002-1.030) 11/01/17 18:25 Urine Protein NEGATIVE (NEGATIVE) 11/01/17 18:25 Urine Ketones NEGATIVE (NEGATIVE) 11/01/17 18:25 Urine Blood TRACE (NEGATIVE) H 11/01/17 18:25 Urine Nitrate NEGATIVE (NEGATIVE) 11/01/17 18:25 Urine Bilirubin NEGATIVE (NEGATIVE) 11/01/17 18:25 Urine Urobilinogen 0.2 EU (0.2-1.0) 11/01/17 18:25 Ur Leukocyte Esterase TRACE (NEGATIVE) H 11/01/17 18:25 Urine RBC 0-1 /hpf (0-3) 11/01/17 18:25 Urine WBC 3-5 /hpf (0-3) H 11/01/17 18:25 Ur Epithelial Cells TRACE /lpf (NONE-1+) 11/01/17 18:25 Urine Bacteria 1+ /hpf (NONE SEEN) H 11/01/17 18:25 Urine Glucose NEGATIVE (NEGATIVE) 11/01/17 18:25 Imaging Review: CT Scan of the Head (Without Contrast) Clinical History: 72-year-old female with an acute memory loss. There is no focal sensory or motor neurologic deficit, or history of antecedent trauma. Technique: Axial unenhanced images were obtained from the vertex through the skull base, reformatted at 5.00 and 1.50 mm increments, and reviewed in bone, brain, and subdural windows. Images were reprocessed in parasagittal and paracoronal planes. Dose reduction techniques were utilized. The DFOV is 21.4 cm. Comparison Study: None. Findings: The ventricles and basilar cisterns are normal in size, and symmetrical in configuration. There is no midline shift, or other evidence of mass effect. There is no abnormal intra or extra-axial blood collection, or acute infarction identified. There is no evidence of a hyperdense MCA sign. There is faint bilateral physiologic basal ganglia calcification. There is some very mild atherosclerotic calcification associated with the cavernous carotid arteries. The paranasal sinuses and the mastoids are patent. There is trace rightward nasal septal deviation. The craniocervical junction, pineal gland, and the orbits are within normal limits. There is an empty sella turcica. There is no acute calvarial fracture, or osteolytic or blastic lesion. There are subchondral degenerative geodes associated with the left mandibular head, and some medial and lateral osteophytes associated with the right mandibular head Impression: There is no acute intracranial abnormality identified on this unenhanced CT evaluation. If there is further clinical concern regarding the patient's symptoms, MR imaging is suggested, if not otherwise contraindicated. 1. CT Angiogram of the Brain , 18:33 hours Clinical Indications: neuro changes acute memory loss, R29.818 Technique: CT angiogram of the brain was performed with the uneventful intravenous administration of 85 mL Isovue-370 contrast. Multiplanar reconstructions including 3D reconstructions performed and evaluated on [employer] workstation in order to better evaluate the little traverse of [place] vessels. Images were manipulated by the radiologist at the computer workstation. Dose reduction techniques were utilized. Comparison: Noncontrast CT performed earlier at 1811. Findings: Major vessels of the little traverse of [place] are adequately displayed, demonstrating no evidence of aneurysm, vascular malformation, flow-limiting stenosis, or occlusion. Bilateral cavernous internal carotid arteries and vertebrobasilar system demonstrate no evidence of flow- limiting stenosis, aneurysm, occlusion or dissection. Superior sagittal sinus, transverse sinuses, and major veins demonstrate no evidence of intraluminal thrombi. Impression: Negative CT angiogram of the brain. 2. CT Angiography of the Neck (With Contrast) Clinical Indications: Sudden memory loss, acute neurological symptoms Technique: During IV administration of 85 mL of Isovue-370 intravenously, helical multidetector data acquisition was obtained from the upper thorax cephalad through the skull base. The thinly collimated data were manipulated in multiple projections on the 3D computer workstation by the radiologist. Dose reduction techniques were utilized. Findings: Carotid bifurcations are widely patent. Both vertebral arteries are tortuous proximally but widely patent. No evidence of occlusion, hemodynamically significant stenosis, or ulceration. Impression: Normal. Final concordant results discussed with Dr. Mack Moss at 7:20 PM. Note: All stenoses are calculated using NASCET Criteria. Visualized and Interpreted imaging results: Yes Visualized and Interpreted EKG results: Yes EKG additional interpertation: NSR in the 60s. No acute ST changes. Left axis deviation. QTC 437 Assessment & Plan Assessment: 72-year-old female with history depression who presents to the emergency department with several hours of global amnesia. 1. Transient global amnesia (Acute) - patient without recollection of the events earlier today although she has been advised of what transpired by her daughter. She is able to recall this she states. She has no focal deficits on exam. CT head CTA head and neck were unremarkable. Patient without any previous history of CVA or family history. Keeler did not recommend initiation of aspirin therapy at this time. Will continue with neuro checks with vital signs but at this point patient without any other focal deficits or history of such. Will check lipid panel. Patient's electrolytes appear intact. Her glucose however was noted to be low on in the emergency department. She has since that time on even a full meal in her repeated blood sugars are now on within normal limits. Patient denies any recent change in any of her medications or use of [id number] or soporifics. Neurology consultation in the morning for any additional recommendations. 2. Mild hypoglycemia - now resolved after day diet as noted above. Will monitor Accu-Cheks for now. 3. Hyperlipidemia will check a lipid panel this morning. Patient is not currently on any therapy. 4. Depression-hold off on citalopram at this time. 5. Osteopenia FEN - patient is tolerating oral intake quite well. No need for IV fluids at this time. Electrolyte monitoring and replacement if needed. Diet as tolerated. PPX-SCDs holding anticoagulation. Anticipate short hospital stay. Will encourage mobilization. Cor status-full. Disposition-patient has been admitted to observation status on the neurology floor for neuro checks and further Neurology evaluation recommendations.
--- NOTE | 2017-11-02 09:27 | NEUROPROG ---
Assessment: HOSPITAL NEUROLOGY CONSULT REQUESTING: Rupali Reddy MD REASON: memory loss HPI: 72 year old woman with a history of anxiety/depression who presented to our ED yesterday after a very brief episode of memory loss. Patient had been in her usual state of health up until around 2pm yesterday. She had a conversation with an auto repair shop, but couldn't remember any of the content of the conversation. This troubled her so she asked her daughter to call the shop back on speaker phone to review the content of that conversation. Outside of this brief lapse in memory, she had no other cognitive deficit. Again, the only scotoma seems to be that of the brief conversation with the auto repair shop. Per the record, her daughter has indicated some mild decline in the patient's memory over the years, such as forgetting where she placed objects. Patient denies any LOC, hallucinations, personality change. She has no navigational challenges, no trouble with financial services professional and she has not been leaving appliances running in the household. No focal deficits such as weakness, sensory loss, vision loss/ disturbance, speech/language disturbance, gait change, hearing change. No REAL, neck/back pain, bowel/bladder disturbance. No fevers, chills, sweats, unintentional weight loss. ROS: As per the HPI, otherwise a complete 12 point ROS was performed and is negative ALLERGIES AND MEDS: As recorded in the EMR - reviewed and reconciled PFSH: As per the intake H&P by Dr. Reddy from yesterday EXAM: VS reviewed in EMR GEN: WDWN sitting in NAD HEENT: NCAT, sclera anicteric, conjunctiva not injected, MMM, oropharynx clear, no scalp tenderness NECK: supple, nontender, no meningismus CV: RRR s1 s2 wo m/r/c/g. Carotid pulses 2+ wo bruit NEURO: MS: awake, alert, oriented to all spheres. Speech nondysarthric. No language disturbance. Follows commands. Attends to both sides. She has amnesia surrounding the brief conversation with her machine setter automatic, but otherwise her memory is grossly preserved. Mood a bit anxious. Good fund of knowledge. No dyspraxia when mimicking hand gestures. 2 min recall 2/3 (unable to recall third object even with multiple choice). Serial 7s intact. CN: pupils 3mm round and reactive. Intolerant of fundoscopy. VFF. Primary gaze centered. Full ocular motility. Facial sensation preserved. Face symmetric. Hearing grossly intact to finger rub. Palatoglossal movements intact. Shoulder shrug and head turn strong. MOTOR: normal bulk/tone. No adventitial movements. Full power throughout. SENSORY: intact to all modalities throughout. No extinction. COORD: no ataxia FN/HS. Dilshad preserved. Romberg neg. REFLEX: plantars down. No clonus. DTRS 2/4. GAIT: rises unassisted. Narrow base. Intact stride length/heel strike/toe lift /arm swing. Turns with 2 steps. DATA REVIEW: Labs reviewed in EMR PERSONALLY INTERPRETED RESULTS AND DATA: CT head wo - brain parenchyma normal, incidental empty sella, nothing acute CTA head/neck - normal IMPRESSION AND RECOMMENDATIONS: // MEMORY LOSS Patient with a brief episode of memory loss, specifically amnesia of the contents of a phone call. This very brief duration is not typical of TGA. This may be more of the beginnings of an underlying neurodegenerative condition , or perhaps pseudo-cognitive impairment from her mood problems. Will check MRI brain wo to evaluate mesial-temporal structures. TSH was normal. I will add B12. If all of these are unremarkable, then she can be discharged and follow up with PCP. Continue with mood optimization. If memory issues become more frequent/apparent, then consultation with neuropsychology would be advised. Objective: Vital Signs Temp Pulse Resp BP Pulse Ox 36.8 C 66 18 123/60 H 93 11/02/17 07:52 11/02/17 07:52 11/02/17 07:52 11/02/17 07:52 11/02/17 07:52 Laboratory Results 11/02/17 04:52 11/01/17 11/02/17 11/03/17 05:59 05:59 05:59 Intake Total 500 Output Total 325 Balance 175 Allergies/Adverse Reactions: No Known Allergies Allergy (Verified 11/01/17 22:37)
[2017-11-02 12:09] VITALS: BP 133/75
--- NOTE | 2017-11-02 12:18 | ASMTLACE ---
[facility] Length of stay for Answers: 1 day current admission # of Emergency department Answers: 1-2 visits in the last 6 months Social determinants Answers: Mental health diagnosis (anxiety, depression, pers onality disorders, etc.) Score: 5 Date Signed: 11/02/2017 12:17 PM Electronically Signed By:Reba Meeks RN
--- NOTE | 2017-11-02 12:19 | ASMTCMCOM ---
CM Note CM Note Notes: Met with patient and family re: discharge plan of care. Patient declines the need for any home assistance at this time and has strong family/friend support. Discussed with MANAGER PRIVATE. CM available should any needs arise. Date Signed: 11/02/2017 12:18 PM Electronically Signed By:Reba Meeks RN
--- NOTE | 2017-11-02 13:21 | GDS ---
[f rep st] DISCHARGE SUMMARY DISCHARGE DIAGNOSIS: Acute memory loss. CONSULTATIONS: Dr. Farris of Neurology. STUDIES AND PROCEDURES: 1. MRI of the brain. 2. CT angio of the head and neck. 3. Head CT. PHYSICAL EXAM: GENERAL: The patient is alert. VITAL SIGNS: Afebrile at 36.7, pulse 67, respirator y rate 16, blood pressure is 133/75. She is saturating greater than 90% on room air. I have seen and evaluated the patient on the day of discharge. HOSPITAL COURSE: The patient is a 72-year-old female who is mildly sleep-deprived and has significan t amount of external stress. She presented to the emergency room with complaints of brief episodes o f acute memory loss. She was evaluated during this hospitalization with a CT of her head, as well as CT angio of her head and neck and an MRI of the brain. These were all within normal limits. It was felt that the patient has unclear etiology of her memory loss. Her laboratory evaluation is within normal limits. Her mentation has returned to normal. She will be discharged home to followup in the outpatient setting. She will follow up with her primary care physician as well as a neuropsychologi st as needed. PENDING STUDIES: Include urine culture. DISCHARGE MEDICATIONS: Please refer to EMR form. I have not adjusted the patient's previously presc ribed home medications. /[id number]/MODL
[2017-11-02] MEDS ORDERED: CITALOPRAM 20 MG TAB PO SCH (17:00)
[2017-11-03] MEDS ORDERED: OMEGA-3 FATTY ACIDS 1,000 MG CAP PO SCH (09:00)
[2017-11-03] MEDS ORDERED: MULTIVITAMINS 1 EACH TAB PO SCH (09:00)
[2017-11-03] MEDS ORDERED: EPA PO SCH (09:00)
[2017-11-03] MEDS ORDERED: FISH OIL PO SCH (09:00)
[2017-11-03] MEDS ORDERED: DHA PO SCH (09:00)
[2017-11-03] MEDS ORDERED: OMEGA PO SCH (09:00)
[2017-11-03] MEDS ORDERED: Herbals/Supplements -Info Only PO SCH (09:00)
== END 2017-11-02 13:28 | disposition home or self-care (01) ==
LOC: CED 17:55 → CEDHOLD 19:14 → F3N 21:11
PROVIDERS: ADMIT Family Medicine; ATTEND Family Medicine
DX: R41.3 Other amnesia (principal); F32.9 Major depressive disorder, single episode, unspecified; E78.5 Hyperlipidemia, unspecified; M81.0 Age-related osteoporosis without current pathological fracture
CPT/HCPCS: 70450; 70496; 70498; 70551; 93005; 99285; G0378; Q9967; 80053-PO; 81003-PO; 81015-PO; 82607-90; 82947-QW; 84443-PO; 85025-PO